=== PATIENT | male | born 1995 | race Caucasian/White ===

== ENCOUNTER 2023-05-14 16:53 | Emergency (ER) | payer SELFPAY ==
[2023-05-14 16:55] VITALS: BP 130/91
[2023-05-14 17:17] LABS: % Basophils 0.4 % (0-2); % Eosinophils 6.6 % (0-6); % Immature Granulocytes 0.3 % (0-0.5); % Lymphocytes 30.4 % (20.5-51.1); % Monocytes 6.6 % (1.7-9.3); % Neutrophils 55.7 % (42.2-75.2); Absolute Eosinophils 0.5 10^3/uL (0-0.7); Absolute Lymphocytes 2.1 10^3/uL (1.2-3.4); Absolute Monocytes 0.5 10^3/uL (0.1-0.6); Absolute Neutrophils 3.8 10^3/uL (1.4-6.5); Hematocrit 41.3 % (39.0-52.0); Hemoglobin 15.1 g/dL (13.0-18.0); Mean Corp Hgb Conc. 36.6 g/dL (33.0-37.0); Mean Corpuscular Hgb 31.1 pg (27.0-31.0); Mean Corpuscular Volume 85.2 fL (80.0-94.0); Mean Platelet Volume 9.6 fL (7.4-10.4); Nucleated Red Blood Cells % 0 % (-); Platelet Count 238 10^3/uL (130-400); Red Blood Cell Count 4.85 10^6/uL (4.70-6.10); Red Cell Dist. Width 12.1 % (11.5-14.5); White Blood Cell Count 6.8 10^3/uL (4.8-10.8)
[2023-05-14 17:38] LABS: ALT (SGPT) 94 U/L (0-50); AST (SGOT) 147 U/L (17-59); Albumin 4.9 g/dl (3.5-5.0); Alkaline Phosphatase 66 U/L (38-126); Blood Urea Nitrogen 6 mg/dl (9-20); Calcium 9.4 mg/dl (8.4-10.2); Carbon Dioxide 20 mmol/L (22-30); Chloride 105 mmol/L (98-107); Glucose 104 mg/dl (70-99); Potassium 3.4 mmol/L (3.5-5.1); Sodium 136 mmol/L (135-145); Total Protein 7.5 g/dl (6.3-8.2); eGFR > 60.00
[2023-05-14 18:02] VITALS: BMI 34.1
[2023-05-14 18:03] VITALS: BP 124/78
--- NOTE | 2023-05-14 18:06 | EDRN ---
Pt is a well-appearing 27yo male, recently diagnosed with anxiety but no other PMH. Pt states he started feeling lightheaded at work today, started having some chest tightness and left arm numbness, was getting increasingly more anxious. Pt
currently reports mild lightheadedness, but denies chest pressure or arm numbness.
--- NOTE | 2023-05-14 19:15 | ED.GENMED ---
History of Present Illness
General
Chief Complaint: Dizziness
Source: patient
Exam Limitations: none
Time Seen by Provider: 05/14/23 19:07
Nursing documentation reviewed up to this point in time: agreed with
Travel History
Have you had any contact with someone who has COVID-19?: No
Do you have any symptoms of coronavirus? Fever > 100 degrees, chills, cough, shortness of breath, sore throat, loss of taste or smell, muscle aches, or headache?: No
History of Present Illness
History of Present Illness:
27-year-old male presents with anxiety numbness of his left arm and left foot but work history of panic attacks, previously on SSRI, stopped when he moved from [place] to [place], drinks socially, about every day smoker lives with his family has no chest
pain or shortness of breath no abdominal pain no nausea or vomiting, has been told previously that his LFTs were elevated, no headache no arm or leg weakness feeling better now that he can reassure his EKG looks okay
Past History
Past History
ED Past Medical History: Psychiatric (Panic attacks previously had been on SSRIs none recently)
Social History
Tobacco: Smoker
Alcohol: Daily
Personal: Single
Living: with family
Employment: Employed
Family History
Family History: Negative Sudden
Review of Systems
Review of Systems
All Other Systems: Not applicable
Constitutional: Denies fever or fatigue
EENT: Reports no symptoms
Respiratory: Reports no symptoms
Cardiac: Reports no symptoms
ABD/GI: Reports no symptoms
Neurological: Reports numbness
Endocrine: Reports no symptoms
Psychiatric: Reports anxiety; Denies depression or hallucinations
Phy Exam
Physical Exam
Physical Exam:
Physical Exam
General: 27 male somewhat disheveled but cooperative not intoxicated
Neck: No jaundice
Heart: s1/s2 regular rate and rhythm, no murmur. equal radial pulses.
Lungs: no acute respiratory distress. clear bilaterally
Abdomen: Nontender
Neuro: alert and oriented. no focal neurological deficits
Skin: no rash
Psychiatric: interactive and cooperative
Extremities: no edema
Course
Orders/Labs/Results
Orders:
Orders
05/14/23 17:09
Complete Blood Count/With Diff Urgent
Comprehensive Metabolic Panel Urgent
05/14/23 19:14
Crisis Consult Routine
Reason for Consult: anxiety
05/14/23 19:20
Electrocardiogram (*1) Urgent
Reason for Study: Palpitations
EKG- Treatment ONCE
Abnormal Lab Results
05/14/23
17:09
MCH 31.1 H pg
(27.0-31.0)
Eosinophils % 6.6 H %
(0-6)
Potassium 3.4 L mmol/L
(3.5-5.1)
Carbon Dioxide 20 L mmol/L
(22-30)
BUN 6 L mg/dl
(9-20)
Glucose 104 H mg/dl
(70-99)
Total Bilirubin 2.0 H mg/dl
(0.2-1.3)
AST 147 H U/L
(17-59)
ALT 94 H U/L
(0-50)
05/14/23 17:09
05/14/23 17:09
Vital Signs
Initial and Last Documented VS:
Initial Vital Signs
Temp Pulse Resp BP Pulse Ox
98.3 F 82 18 130/91 99
05/14/23 16:55 05/14/23 16:55 05/14/23 16:55 05/14/23 16:55 05/14/23 16:55
Last Documented Vital Signs
Temp Pulse Resp BP Pulse Ox
98.3 F 70 16 124/78 100
05/14/23 16:55 05/14/23 18:03 05/14/23 18:03 05/14/23 18:03 05/14/23 18:03
MDM/Problems Addressed
Differential Diagnosis Includes:
Anxiety panic attack electrolyte abnormality, neurologic condition psychiatric condition
MDM/Problems Addressed:
Anxiety numbness tingling
Chronic conditions affecting care: Psychiatric illness
Acute Exacerbation and/or Progression of Chronic Illness: Psychiatric illness
*Pulse Oximetry
Patient hypoxic: no
*EKG
Interpreted by ED Provider?: Yes
Interpretation: normal
Comparison EKG: no comparison EKG present
Heart Rate: 78
Rate: normal
Rhythm: sinus
[place]: normal axis
Ischemia: no ischemia
*Information Technology Coordinator Interpretation
Rate: normal
Interpretation: normal
Heart Rate: 78
Rhythm: sinus
*Critical Care Note
Total Time (30-74mins, 75-104mins- exclusive of procedures): Not Applicable
Update Note
Update Note:
Update vital signs stable patient no acute distress nonfocal neurologic exam, will ask crisis to see him, I do not believe this was a TIA or CVA,
820 patient seen by crisis outpatient resources given
ED Attending Note
-
Portions of this chart may have been created with voice recognition software.� Occasional wrong word or��sound alike� substitutions may have occurred due to the inherent limitations of voice recognition software.
Discharge Plan
Departure
Patient Disposition: Home (Routine Discharge)
Date of Disposition: 05/14/23
Time of Disposition: 20:17
Patient with high blood pressure during this ER visit?: No
Condition: Good
Discharge Problem:
Panic attack
Instructions: Anxiety, Adult (DC), Panic disorder
Referrals:
UNKNOWN - PT DOES,NOT KNOW [Family Provider] -
Activity Restrictions/Additional Instructions:
Rest, limit your alcohol and tobacco use, follow-up with the resources given to you by [facility] crisis
You should receive a phone call from somebody
Health setting up with a primary care provider
Interventions
Interventions:
*Risk Screen - Suicide Last Done: 05/14/23 16:58
*General Assessment Last Done: 05/14/23 16:58
*Neglect/Abuse Screening Last Done: 05/14/23 16:58
*ED COVID-19 Vaccine History Last Done: 05/14/23 16:59
ED- Neurological Assessment Last Done: 05/14/23 18:03
ED Swallowing Screen Last Done: 05/14/23 18:03
[2023-05-14 20:34] VITALS: BP 119/84
[2023-05-14] MEDS: ATIVAN 1 MG PO (20:47)
== END 2023-05-14 21:41 | disposition home or self-care (01) ==
LOC: EMR 16:53
PROVIDERS: Emergency Medicine; EMERGENCY PHYSICIAN Emergency Medicine
DX: F41.0 Panic disorder [episodic paroxysmal anxiety] (principal); R20.0 Anesthesia of skin; R42 Dizziness and giddiness; R07.89 Other chest pain; F41.9 Anxiety disorder, unspecified; F17.210 Nicotine dependence, cigarettes, uncomplicated; Z91.048 Other nonmedicinal substance allergy status
CPT/HCPCS: 99283; 80053; 85025; 93005